=== PATIENT | male | born 1970 | race Caucasian/White ===

== ENCOUNTER 2021-11-04 05:25 | Emergency (ER) | payer OTHER ==
[~2021-11-04] VITALS: Ht 175.3 cm; Wt 74.8 kg
--- NOTE | 2021-11-04 05:40 | NUR ---
PATIENT [id number] ESCORTED BY [employer], FOUND LYING ON THE FLOOR MOANING WITH BP 60/46 GIVEN 500CC NS 113/72 @ TRIAGE, PT FEELING WEAK AND LETHARGIC. 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 PATIENT A/O X3, RR EVEN AND UNLABORED. PATIENT TAKEN TO ER BED 14. PATIENT CONNECTED TO NUCLEAR MEDICINE PET CT TECHNOLOGIST AND POX. WILL CONTINUE TO MONITOR.
--- NOTE | 2021-11-04 06:17 | NUR ---
ER TACH AT BEDSIDE FOR EKG
--- NOTE | 2021-11-04 06:18 | NUR ---
LAB AT BEDSIDE
--- NOTE | 2021-11-04 06:23 | NUR ---
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 IVF NS 1000ML INFUSING ORDERED
[2021-11-04] MEDS ORDERED: IV NS 0.9% 1,000 ML BAG IV ONE ×2 (06:30→07:30)
--- NOTE | 2021-11-04 06:31 | NUR ---
BARI BS 143; DR. TALIA PATTERSON AWARE
--- NOTE | 2021-11-04 06:35 | NUR ---
OFFERED PT URINAL; NOT ABLE TO URINATE AT THIS TIME. WILL F/U AND TRY AGAIN LATER
[2021-11-04 06:44] LABS: BASOPHILS % (AUTO) 0.2 % (0.0-2.0); EOSINOPHILS % (AUTO) 0.7 % (0.0-6.0); HEMATOCRIT 49 % (39-51); HEMOGLOBIN 16.2 g/dL (13.5-17.5); LYMPHOCYTES # (AUTO) 1.1 K/uL (0.8-4.8); MEAN CORPUSCULAR HGB CONC 33 g/dl (31.0-36.0); MEAN CORPUSCULAR VOLUME 87 fL (80-96); MONOCYTES # (AUTO) 1.4 K/uL (0.1-1.30); MONOCYTES % (AUTO) 9.1 % (2.0-12.0); NEUTROPHILS # (AUTO) 12.5 K/uL (1.8-8.9); PLATELET COUNT (AUTO) 198 K/uL (150-450); WHITE BLOOD COUNT (AUTO) 15.1 K/uL (4.3-11.0)
[2021-11-04 06:53] LABS: SERUM AMMONIA 17 umol/L (11-32)
--- NOTE | 2021-11-04 06:56 | NUR ---
PT TAKEN TO CT VIA GRACIELA
[2021-11-04 06:59] LABS: ALANINE AMINOTRANSFERASE 113 U/L (12-78); ALBUMIN 3.7 g/dL (3.4-5.0); ALKALINE PHOSPHATASE 113 U/L (46-116); ASPARTATE AMINOTRANSFERASE 58 U/L (15-37); BILIRUBIN,DIRECT 0.1 mg/dL (0.0-0.2); BILIRUBIN,TOTAL 0.7 mg/dL (0.2-1.0); CALCIUM, SERUM 9.2 mg/dL (8.5-10.1); CARBON DIOXIDE 22 mmol/L (21-32); CHLORIDE 104 mmol/L (98-107); CREATININE 1.3 mg/dL (0.6-1.3); GLUCOSE 113 mg/dL (74-106); SODIUM SERUM 135 mmol/L (136-145); TOTAL PROTEIN, SERUM 7.8 g/dL (6.4-8.2); UREA NITROGEN, BLOOD 18 mg/dL (7-18)
[2021-11-04 07:01] LABS: ALCOHOL, BLOOD < 3 mg/dL (0-0)
--- NOTE | 2021-11-04 07:04 | NUR ---
PT RETURNED TO ER BED [address]
[2021-11-04 07:06] LABS: THYROID STIMULATING HORMONE 1.676 uIU/mL (0.358-3.74)
--- NOTE | 2021-11-04 09:50 | NUR ---
AMBULATED TO THE BATHROOM WITH STEADY GAIT
--- NOTE | 2021-11-04 10:03 | NUR ---
IV removed. Catheter intact and site benign. Pressure and 4x4 applied to site. No bleeding noted.Patient discharged to home in stable condition. Written and verbal after care instructions given. Patient verbalizes understanding of instruction.
[2021-11-04 10:06] VITALS: BP 126/82
== END 2021-11-04 10:06 ==
LOC: ER 05:31 → EDBD 05:31 → ER 10:06
DX: I95.9 Hypotension, unspecified (principal); F15.10 Other stimulant abuse, uncomplicated; R40.4 Transient alteration of awareness; Z88.0 Allergy status to penicillin; Z86.73 Personal history of transient ischemic attack (TIA), and cerebral infarction without residual deficits
CPT/HCPCS: 36415; 70450; 71045; 80048; 80076; 80307; 80320; 82140; 82962; 84443; 85025; 93005; 96360; 96361; 99285; J7030 ×2; G0480